=== PATIENT | female | born 1995 | race Hispanic/Latino ===

== ENCOUNTER → 2017-12-26 | Outpatient (CLI) | payer BC ==
--- NOTE | 2017-12-26 19:13 | Diagnostic Imaging Report ---
PROCEDURE:X-RAY RIGHT TOES, MINIMUM TWO VIEWS COMPARISON:None. INDICATIONS:DROPPPED WEIGHT ON BIG TOE FINDINGS: BONES: Normal mineralization. No acute, displaced fracture or dislocation. Joint spaces are within normal limits. SOFT TISSUES:Unremarkable. OTHER:No radiopaque foreign bodies.. CONCLUSION: No acute abnormalities. Paul López M.D. Dictated by: Paul López M.D. on 12/26/2017 at 19:13 Electronically approved by: Paul López M.D. on 12/26/2017 at 19:13
--- NOTE | 2017-12-26 19:14 | Diagnostic Imaging Report ---
PROCEDURE:X-RAY RIGHT FOOT, COMPLETE COMPARISON:None. INDICATIONS:DROPPED WEIGHT ON HER BIG TOE FINDINGS: There are no fractures, dislocations, lytic or blastic lesions. The bones are well-mineralized. The soft-normal mineralization. No acute, displaced fracture or dislocation. No lytic or blastic lesion. Joint spaces are preserved. Soft tissues are grossly unremarkable. CONCLUSION: No acute abnormalities. Paul López M.D. Dictated by: Paul López M.D. on 12/26/2017 at 19:14 Electronically approved by: Paul López M.D. on 12/26/2017 at 19:14
== END ==
LOC: RAD 12:12
PROVIDERS: ATTEND Family Medicine
DX: S90.111A Contusion of right great toe without damage to nail, initial encounter (principal); W22.8XXA Striking against or struck by other objects, initial encounter; M79.671 Pain in right foot